=== PATIENT | female | born 1995 ===

== ENCOUNTER 2018-12-24 12:15 | Inpatient (IN) | payer OTHER ==
[~2018-12-24] VITALS: Ht 162.6 cm; Wt 68.0 kg
== END 2019-01-10 16:01 | DRG 807 ==
LOC: OB/GYN 01-08 05:43 → LDR 01-08 05:43 → OB/GYN 01-08 14:12
PROVIDERS: ADMIT Specialist
PROC: 10E0XZZ Delivery of Products of Conception, External Approach (ICD-10-PCS; principal; 2019-01-08)
PROC: 4A1HXCZ Monitoring of Products of Conception, Cardiac Rate, External Approach (ICD-10-PCS; 2019-01-08)
PROC: 0HQ9XZZ Repair Perineum Skin, External Approach (ICD-10-PCS; 2019-01-08)
DX: O70.0 First degree perineal laceration during delivery (principal); Z37.0 Single live birth; Z3A.39 39 weeks gestation of pregnancy